=== PATIENT | female | born 1975 | race Caucasian/White ===

== ENCOUNTER → 2018-10-19 | Outpatient (REF) ==
[2018-10-20 10:00] LABS: RUBELLA IgG QUALITATIVE IMMUNE (IMMUNE)
== END ==
LOC: M LAB 09:56
PROVIDERS: ATTEND Nurse Practitioner Adult Health
DX: Z00.00 Encounter for general adult medical examination without abnormal findings (principal)

== ENCOUNTER → 2018-10-19 | Outpatient (CLI) | payer OTHER ==
--- NOTE | 2018-10-19 15:44 | REP ---
REASON: Hypertension. PRIORS: None. FINDINGS: The superior mediastinal structures are midline. The cardiac silhouette is unremarkable in size, shape, and position. The diaphragmatic surfaces of the lungs are regular, and the costophrenic angles are clear. The pulmonary sotelo are clear. The imaged osseous structures are intact. IMPRESSION: There is no acute cardiopulmonary disease. Electronically Signed by Pepito Carroll DO 10/19/2018 05:09 P
[2018-10-19 17:09] LABS: ALBUMIN 4.2 GM/DL (3.2-5.2); ALT/SGPT 27 U/L (12-78); BILIRUBIN,TOTAL 0.7 MG/DL (0.2-1.0); BLOOD UREA NITROGEN 12 MG/DL (7-18); CALCIUM LEVEL 9.3 MG/DL (8.5-10.1); CARBON DIOXIDE LEVEL 24 MEQ/L (21-32); CHLORIDE LEVEL 110 MEQ/L (98-107); CREATININE FOR GFR 0.99 MG/DL (0.55-1.30); FREE T4 1.07 NG/DL (0.76-1.46); GLOMERULAR FILTRATION RATE > 60.0 (>58); GLUCOSE, FASTING 97 MG/DL (70-100); POTASSIUM SERUM 4.9 MEQ/L (3.5-5.1); SODIUM LEVEL 142 MEQ/L (136-145); TOTAL PROTEIN 7.5 GM/DL (6.4-8.2)
[2018-10-19 17:10] LABS: BASO % 0.3 % (0.0-1.0); EOS # 0.1 10^3/uL (0.0-0.50); EOS % 0.7 % (0.0-3.0); HEMOGLOBIN 13.4 g/dl (12.0-15.5); LYMPH # 0.9 10^3/uL (1.5-4.5); LYMPH % 8.7 % (24.0-44.0); MEAN CORPUSCULAR HGB CONC 31.9 g/dl (32.0-36.5); MEAN CORPUSCULAR VOLUME 94.2 fl (80.0-96.0); MONO # 0.5 10^3/uL (0.0-0.8); MONO % 5.2 % (0.0-5.0); NEUTROPHILS # 8.4 10^3/uL (1.8-7.7); NEUTROPHILS % 84.8 % (36.0-66.0); PLATELET COUNT, AUTOMATED 331 10^3/uL (150-450); RED BLOOD COUNT 4.46 10^6/uL (4.00-5.40); WHITE BLOOD COUNT 9.9 10^3/uL (4.0-10.0)
== END ==
LOC: M WUC 11:36
PROVIDERS: ATTEND Physician Assistant
DX: I10 Essential (primary) hypertension (principal)

== ENCOUNTER → 2019-01-10 | Outpatient (REF) | payer OTHER ==
[2019-01-10 13:37] LABS: ALBUMIN 3.8 GM/DL (3.2-5.2); ALT/SGPT 24 U/L (12-78); BILIRUBIN,TOTAL 0.5 MG/DL (0.2-1.0); BLOOD UREA NITROGEN 14 MG/DL (7-18); CALCIUM LEVEL 8.6 MG/DL (8.5-10.1); CARBON DIOXIDE LEVEL 28 MEQ/L (21-32); CHLORIDE LEVEL 104 MEQ/L (98-107); CHOLESTEROL LEVEL 186 MG/DL (<200); CHOLESTEROL RISK RATIO 3.381 (<5); CREATININE FOR GFR 0.85 MG/DL (0.55-1.30); GLOMERULAR FILTRATION RATE > 60.0 (>58); GLUCOSE, FASTING 87 MG/DL (70-100); HDL CHOLESTEROL 55 MG/DL (>40); LDL CHOLESTEROL 114 MG/DL (<100); NON-HDL-C 131 MG/DL; POTASSIUM SERUM 4.9 MEQ/L (3.5-5.1); SODIUM LEVEL 139 MEQ/L (136-145); TOTAL PROTEIN 6.9 GM/DL (6.4-8.2); TRIGLYCERIDES LEVEL 83 MG/DL (<150)
[2019-01-10 14:25] LABS: HEMOGLOBIN A1c 5.1 %
== END ==
LOC: M SFHCCLAY 07:51
PROVIDERS: ATTEND Family Medicine
DX: I10 Essential (primary) hypertension (principal); Z13.220 Encounter for screening for lipoid disorders; R35.8 Other polyuria

== ENCOUNTER → 2020-07-20 | Outpatient (CLI) | payer OTHER ==
--- NOTE | 2020-07-20 09:17 | REP ---
INDICATION: PAIN. COMPARISON: None. TECHNIQUE: AP, lateral, bilateral oblique, sunrise and tunnel views of the right knee FINDINGS: Mild osteoarthritic degenerative changes include subtle cortical irregularity and spurring primarily noted at the lateral compartment along with subtle increased sclerosis to the tibial plateau and very minimal medial joint space narrowing. No acute fracture or dislocation. No effusion. IMPRESSION: Mild osteoarthritic degenerative changes. <Electronically signed by Jacob Wang > 07/20/20 0905
== END ==
LOC: M SOG 08:39
PROVIDERS: ATTEND Orthopaedic Surgery Sports Medicine
DX: M23.331 Other meniscus derangements, other medial meniscus, right knee (principal)

== ENCOUNTER → 2020-08-12 | Outpatient (CLI) | payer OTHER ==
--- NOTE | 2020-08-13 10:09 | REP ---
INDICATION: RT KNEE MENISCUS DERANGEMENT W/ PAIN. COMPARISON: Radiographs 07/20/2020. TECHNIQUE: Multiple sequences obtained in the axial, coronal and sagittal planes. FINDINGS: Menisci: There is extensive complex tear of the medial meniscus. Cruciate ligaments: There is a partial tear of the anterior cruciate ligament. Collateral ligaments: Intact. Extensor mechanism/patellar retinacula: Intact. Cartilage: There is mild global chondromalacia, no osteochondral defect. Bone marrow: Normal signal, no edema or occult fracture. Joint fluid: There is a moderate joint effusion. Popliteal region: There is a thin Mazariegos's cyst which has a maximum craniocaudal length of 5.5 cm and a maximum thickness of approximately 6 mm. There is a suprapatellar plica. IMPRESSION: Extensive complex tear medial meniscus. Partial tear anterior cruciate ligament. Mild global chondromalacia. Moderate joint effusion. Thin Mazariegos's cyst. Suprapatellar plica. <Electronically signed by Jovi Coleman > 08/13/20 [id number]
== END ==
LOC: M RAD 10:29
PROVIDERS: ATTEND Orthopaedic Surgery Sports Medicine
DX: M23.91 Unspecified internal derangement of right knee (principal)

== ENCOUNTER → 2020-09-07 | Outpatient (CLI) | payer OTHER ==
[~2020-09-07] MED LIST: LISI-898 PO
== END ==
LOC: M LABSMTC 11:39
PROVIDERS: ATTEND Anesthesiology
DX: Z01.818 Encounter for other preprocedural examination (principal); Z11.52 Encounter for screening for COVID-19

== ENCOUNTER 2020-09-12 08:23 | Day surgery (SDC) | payer OTHER ==
[~2020-09-12] VITALS: Ht 167.6 cm; Wt 83.6 kg
[~2020-09-12 08:23] MED LIST changes: +LIDOCAINE 1% MDV 20ML VIAL SQ PRN; +LR 1,000 ML IV ONE; +MIDAZOLAM INJ 2MG/2ML VIAL (J2250 PER 1MG) As Ordered ONE; +ceFAZolin SOD 2 GM in IV 1 EA IV ONE; +fentaNYL 100 MCG/2 ML INJECTION (J3010) As Ordered ONE
[2020-09-12] MEDS ORDERED: ROPIvacaine 0.5% 30ML INJECTION (J2795 PER 1MG) As Ordered ONE (09:37)
[2020-09-12] MEDS ORDERED: dexameTHASONE 4 MG/ML 1ML VIAL (J1100 PER 1MG) As Ordered ONE (09:59)
[2020-09-12] MEDS ORDERED: ONDANSETRON 4MG/2ML VIAL As Ordered ONE (10:00)
[2020-09-12] MEDS ORDERED: propofoL 200 MG/20 ML VIAL As Ordered ONE (10:01)
[2020-09-12] MEDS ORDERED: ACETAMINOPHEN 1000MG 100ML IV BTL (OFIRMEV) (J0131 PER 10MG) As Ordered ONE (10:07)
[2020-09-12] MEDS ORDERED: HYDROmorphone HCL 2 MG/ML 1ML VIAL (J1170) As Ordered ONE (10:10)
[2020-09-12] MEDS ORDERED: fentaNYL 100 MCG/2 ML INJECTION (J3010) As Ordered ONE (10:23)
[2020-09-12] MEDS ORDERED: KETOROLAC 60MG 2ML VIAL As Ordered ONE (10:30)
[2020-09-12] MEDS ORDERED: LR 1,000 ML IV SCH ×2 (10:50→11:00)
[2020-09-12] MEDS ORDERED: METOCLOPRAMIDE INJ 10MG/2ML VIAL (J2765 PER 1) As Ordered ONE (10:51)
--- NOTE | 2020-09-12 10:51 | ROOPDOC ---
[facility] Report Of Operation Report of Operation DATE OF PROCEDURE: 09/12/20 PREPROCEDURE DIAGNOSES: Right knee medial meniscus tear arthritis and ACL sprain. POSTPROCEDURE DIAGNOSES: Right knee medial meniscus tear high-grade ACL tear with cyclops lesion and mild tricompartmental osteoarthritis. PROCEDURE PERFORMED: Right knee arthroscopy, partial medial meniscectomy, debridement. SURGEON: Dr. Dilip Rendon MD SEISMIC OBSERVER: MD Eladio ANESTHESIA: General anesthetic and local Dr. Deleon. ESTIMATED BLOOD LOSS: Approximately 20 mL. COMPLICATIONS: None. REMARKS: None. FINDINGS: Medial meniscus tear mild tricompartmental osteoarthritis and high- grade ACL tear with cyclops lesion SPECIMENS REMOVED: None PROCEDURE NOTE: This 44-year-old female had signs and symptoms mostly consistent with a medial meniscus tear. MRI findings was consistent with an ACL sprain medial meniscus tear as well as mild osteoarthritis. We discussed the pros and cons risk and benefits of going ahead with right knee arthroscopy partial medial meniscectomy and examination under anesthetic. She understood wished to proceed. We did discuss the possibility of finding ACL insufficiency and as discussed in the office we would only be performing partial medial meniscectomy at today's surgery and determining the effect of that and determining if she still had sensations of giving way or looseness of the knee we can have a discussion about ACL reconstruction in the future. She understands wished to proceed and I marked the right lower extremity. She had no further questions. DESCRIPTION OF PROCEDURE: The patient was brought to the operating room theater. They are placed supine on the operating room table. 2 g of IV Ancef was administered prior to the start of the case. All bony prominences padded. Sequential device placed on the opposite leg. Stress positional use the patient's right side. 34 inch tourniquet was applied and appropriately padded to the right thigh. All bony prominences were padded. Right lower extremity prepped and draped in the usual sterile fashion with chlorhexidine prep solution allowing over 3 minutes drying time prior to draping. Preoperative timeout performed to confirm the site patient and surgery. I performed an examination under anesthetic. Full range of motion 0 to 135 degrees. ACL had 1+ Lorraine relatively firm endpoint pivot glide but no obvious pivot shift or clunk, quite similar to the in-office exam. I began by elevating the limb and inflating the tourniquet to 250 mmHg. I made standard anterolateral and anteromedial arthroscopy portals. I performed a thorough diagnostic arthroscopy. There was some mild superficial grade 1 fraying of the undersurface of the patella that was gently debrided. Trochlea appeared normal. Medial and lateral gutters were normal no loose bodies. ACL fibers had only few remaining, under appropriate tension, but with a cyclops lesion anteriorly that I debrided and did not seem to be fully inserting to the later wall, rather healed to the PCL fibers. PCL appeared normal. Cartilage on the medial side appeared to only have very minor grade 1 softening on the tibia and femur side. On the lateral compartment there was grade 2 fraying of the tibia again that was debrided. The femur appeared normal on the lateral compartment. Lateral meniscus had inner surface fraying that I gently debrided. Medial meniscus had a complex tear mostly in the mid body. Anterior and posterior horns appeared stable to probing. There was a combination of flap nubbin type tear just anterior to the mid body of the medial meniscus that I debrided to stable margins. There is a complex horizontal degenerative type tear of the medial meniscus as well that I debrided using basket punch and shaver instruments to stable margins. I took out a total of 5% of the medial meniscus. I removed a medial parapatellar plica. Pictures taken throughout the case and saved onto the system. Case terminated. Tourniquet let down. Wound thoroughly irrigated. Fluid removed from the intra- articular portion of the knee. 9 cc of half percent ropivacaine used for local anesthetic around the portal sites. Skin cleaned with wet and dry dressing followed by application of Steri-Strips Adaptic 4 by gauze abdominal pad dressing and overwrapped with sterile 6 inch Jeevan bandage. Patient woken up from general anesthetic transferred off the operating room tab le and taken to postanesthetic care unit in stable condition. All sponge needle instrument counts were correct. No complications. Estimated blood loss 20 cc. Plan for the patient weightbearing as tolerated range of motion as tolerated. Crutches likely for the first 2 weeks change dressing postoperative day 1 and 2 and as needed keep the wound clean and dry. Follow-up in clinic in 2 weeks time. If they continue to experience giving way or looseness of the knee the next step would be considering an ACL reconstruction, given the high-grade tear seen during surgery. Prescription has been sent into their pharmacy of choice electronically. Risk factors for harms from taking opioid medications discussed and assessed including but not limited to personal or family history of substance use disorder, anxiety or depression, , age 65 or older, COPD or other underlying respiratory conditions, and renal or hepatic insufficiency. Discussed with patient concerns and determined any harms they may experience or be currently experiencing such as nausea or constipation, feeling sedated or confused, breathing interruptions during sleep, or taking or craving more opioids than prescribed or difficulty controlling use (addiction). Discussed early warning signs of overdose including confusion, sedation, slurred speech, abnormal gait. Postoperative wound instructions were given. It was recommended to keep the wound clean and dry. Dressing changes as needed. It was reinforced with the patient that they should call us or be seen immediately for redness, drainage, or fever. DILIP RENDON MD Sep 12, 2020 10:51
[2020-09-12] MEDS ORDERED: PERCOCET 5MG/325MG TAB PO PRN (10:55)
[2020-09-12] MEDS ORDERED: ONDANSETRON 4MG/2ML VIAL IV PRN ×2 (10:55→11:00)
[2020-09-12] MEDS ORDERED: MORPHINE 2 MG/ML 1ML VIAL (J2270) IV PRN (10:55)
[2020-09-12] MEDS ORDERED: ACETAMINOPHEN TAB 650MG DOSE (2X325MG) PO PRN (10:55)
[2020-09-12] MEDS ORDERED: METOCLOPRAMIDE INJ 10MG/2ML VIAL (J2765 PER 1) IV PRN (11:00)
[2020-09-12] MEDS ORDERED: HYDROMORPHONE HCL 0.5 MG/ 0.5 ML SYRINGE (J1170 PER 1) IV PRN (11:00)
[2020-09-12] MEDS ORDERED: fentaNYL 100 MCG/2 ML INJECTION (J3010) IV PRN (11:00)
[2020-09-12] MEDS ORDERED: diphenhydrAMINE 50MG/ML VIAL (J1200) IV PRN (11:00)
[2020-09-12] MEDS ORDERED: oxyCODONE 5MG TAB PO PRN (11:00)
[2020-09-12 13:20] VITALS: BP 117/72
== END 2020-09-12 13:47 | disposition home or self-care (01) ==
LOC: M SDC 08:23
PROVIDERS: ATTEND Orthopaedic Surgery Sports Medicine
DX: S83.231A Complex tear of medial meniscus, current injury, right knee, initial encounter (principal); M25.861 Other specified joint disorders, right knee; S83.511A Sprain of anterior cruciate ligament of right knee, initial encounter; M94.261 Chondromalacia, right knee; I10 Essential (primary) hypertension; X58.XXXA Exposure to other specified factors, initial encounter; M17.11 Unilateral primary osteoarthritis, right knee; M67.51 Plica syndrome, right knee; Z79.899 Other long term (current) drug therapy
CPT/HCPCS: 29881; 81025; 97116; J0131; J0690; J1100; J1170; J1885; J2250; J2405; J2765; J2795; J3010

== ENCOUNTER → 2021-02-05 | Outpatient (CLI) | payer OTHER ==
[~2021-02-05] MED LIST changes: -LIDOCAINE 1% MDV 20ML VIAL SQ PRN; -LISI-898 PO; +LISI5TAB11 PO; -LR 1,000 ML IV ONE; -MIDAZOLAM INJ 2MG/2ML VIAL (J2250 PER 1MG) As Ordered ONE; -ceFAZolin SOD 2 GM in IV 1 EA IV ONE; -fentaNYL 100 MCG/2 ML INJECTION (J3010) As Ordered ONE
== END ==
LOC: M SOG 08:30
PROVIDERS: ATTEND Orthopaedic Surgery Sports Medicine
DX: S83.231D Complex tear of medial meniscus, current injury, right knee, subsequent encounter (principal)

== ENCOUNTER → 2021-09-23 | Outpatient (REF) | payer OTHER ==
[2021-09-23 12:14] LABS: ALBUMIN 3.9 GM/DL (3.2-5.2); ALT/SGPT 21 U/L (12-78); BILIRUBIN,TOTAL 1.6 MG/DL (0.2-1.0); BLOOD UREA NITROGEN 10 MG/DL (7-18); CALCIUM LEVEL 9.1 MG/DL (8.5-10.1); CARBON DIOXIDE LEVEL 28 MEQ/L (21-32); CHLORIDE LEVEL 108 MEQ/L (98-107); CHOLESTEROL LEVEL 178 MG/DL (<200); CHOLESTEROL RISK RATIO 3.708 (<5); CREATININE FOR GFR 0.88 MG/DL (0.55-1.30); GLOMERULAR FILTRATION RATE > 60.0 (>58); GLUCOSE, FASTING 101 MG/DL (70-100); HDL CHOLESTEROL 48 MG/DL (>40); LDL CHOLESTEROL 109 MG/DL (<100); NON-HDL-C 130 MG/DL; POTASSIUM SERUM 4.7 MEQ/L (3.5-5.1); SODIUM LEVEL 139 MEQ/L (136-145); TOTAL PROTEIN 6.7 GM/DL (6.4-8.2); TRIGLYCERIDES LEVEL 107 MG/DL (<150)
== END ==
LOC: M SFHCCLAY 08:52
PROVIDERS: ATTEND Family Medicine
DX: I10 Essential (primary) hypertension (principal)

== ENCOUNTER → 2021-09-30 | Outpatient (REF) | payer OTHER ==
[2021-09-30 22:42] LABS: BILIRUBIN,TOTAL 0.7 MG/DL (0.2-1.0)
[2021-09-30 22:43] LABS: ALBUMIN 3.9 GM/DL (3.2-5.2); BILIRUBIN,DIRECT 0.2 MG/DL (0.0-0.2); TOTAL PROTEIN 6.7 GM/DL (6.4-8.2)
== END ==
LOC: M SFHCCLAY 09:08
PROVIDERS: ATTEND Family Medicine
DX: I10 Essential (primary) hypertension (principal)

== ENCOUNTER → 2021-10-08 | Outpatient (CLI) | payer OTHER | LOC: M CLY 11:29 | PROVIDERS: ATTEND Physician Assistant | DX: S89.91XA Unspecified injury of right lower leg, initial encounter (principal) ==

== ENCOUNTER → 2023-06-03 | Outpatient (REF) | payer OTHER ==
[2023-06-03 11:32] LABS: HEMATOCRIT 40.5 % (36.0-47.0); HEMOGLOBIN 13.3 g/dl (12.0-15.5); MEAN CORPUSCULAR HEMOGLOBIN 31.9 pg (27.0-33.0); MEAN CORPUSCULAR HGB CONC 32.8 g/dl (32.0-36.5); MEAN CORPUSCULAR VOLUME 97.1 fl (80.0-96.0); PLATELET COUNT, AUTOMATED 290 10^3/uL (150-450); RED BLOOD COUNT 4.17 10^6/uL (4.00-5.40); WHITE BLOOD COUNT 5.9 10^3/uL (4.0-10.0)
[2023-06-03 12:06] LABS: ALBUMIN 4.1 G/DL (3.2-5.2); ALKALINE PHOSPHATASE 63 U/L (46-116); ALT/SGPT 18 U/L (7.0-40); AST/SGOT 12 U/L (<34); BLOOD UREA NITROGEN 16 MG/DL (9-23); CALCIUM LEVEL 9.3 MG/DL (8.5-10.1); CARBON DIOXIDE LEVEL 28 MMOL/L (20-31); CHLORIDE LEVEL 106 MMOL/L (98-107); CHOLESTEROL LEVEL 172 MG/DL (<200); CHOLESTEROL RISK RATIO 3.35 (<5); CREATININE FOR GFR 0.86 MG/DL (0.55-1.30); GLOMERULAR FILTRATION RATE > 60.0 (>58); GLUCOSE, FASTING 91 MG/DL (60-100); HDL CHOLESTEROL 51.3 MG/DL (>40); LDL CHOLESTEROL 106.5 MG/DL (<100); NON-HDL-C 120.7 MG/DL; POTASSIUM SERUM 4.6 MMOL/L (3.5-5.1); SODIUM LEVEL 139 MMOL/L (136-145); TOTAL PROTEIN 6.6 G/DL (5.7-8.2); TRIGLYCERIDES LEVEL 71 MG/DL (<150)
== END ==
LOC: M SFHCCLAY 09:02
PROVIDERS: ATTEND Family Medicine
DX: Z00.00 Encounter for general adult medical examination without abnormal findings (principal); I10 Essential (primary) hypertension

== ENCOUNTER → 2024-12-06 | Outpatient (REF) | payer OTHER ==
[2024-12-06 19:13] LABS: ESTIMATED AVERAGE GLUCOSE 100.0 MG/DL (60-110)
[2024-12-06 19:17] LABS: ALT/SGPT 23.0 U/L (7.0-40); AST/SGOT 19.0 U/L (<34); CALCIUM LEVEL 9.8 MG/DL (8.5-10.1); CARBON DIOXIDE LEVEL 24.0 MMOL/L (20-31); CHLORIDE LEVEL 105.0 MMOL/L (98-107); CHOLESTEROL LEVEL 190.0 MG/DL (<200); CHOLESTEROL RISK RATIO 3.57 (<5); CREATININE FOR GFR 0.9 MG/DL (0.55-1.30); GLOMERULAR FILTRATION RATE 79.4 (>58); LDL CHOLESTEROL 121.6 MG/DL (<100); NON-HDL-C 136.8 MG/DL; POTASSIUM SERUM 5.6 MMOL/L (3.5-5.1); SODIUM LEVEL 138.0 MMOL/L (136-145); TRIGLYCERIDES LEVEL 76.0 MG/DL (<150)
== END ==
LOC: M SFHCCLAY 10:21
PROVIDERS: ATTEND Physician Assistant
DX: I10 Essential (primary) hypertension (principal); Z12.31 Encounter for screening mammogram for malignant neoplasm of breast; Z12.11 Encounter for screening for malignant neoplasm of colon

== ENCOUNTER → 2024-12-08 | Outpatient (REF) | payer OTHER ==
[2024-12-08 13:16] LABS: CALCIUM LEVEL 8.9 MG/DL (8.5-10.1); CARBON DIOXIDE LEVEL 26.0 MMOL/L (20-31); CHLORIDE LEVEL 107.0 MMOL/L (98-107); CREATININE FOR GFR 0.92 MG/DL (0.55-1.30); GLOMERULAR FILTRATION RATE 77.3 (>58); POTASSIUM SERUM 5.1 MMOL/L (3.5-5.1); SODIUM LEVEL 140.0 MMOL/L (136-145)
== END ==
LOC: M SFHCCLAY 07:36
PROVIDERS: ATTEND Physician Assistant
DX: E87.5 Hyperkalemia (principal)